=== PATIENT | male | born 1985 | race Native Hawaiian/Other Pacific Islander ===

== ENCOUNTER 2019-12-29 12:36 | Emergency (ER) | payer MEDICAID ==
[~2019-12-29] VITALS: Ht 170.2 cm; Wt 89.1 kg
[2019-12-29 12:39] VITALS: BP 135/94
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
[2019-12-29] MEDS: IBUPROFEN 600 MG TAB PO ONE (12:55)
--- NOTE | 2019-12-29 12:55 | NUR ---
PT TAKEN TO XRAY VIA WHEELCHAIR
[2019-12-29 13:44] VITALS: BP 130/84
--- NOTE | 2019-12-29 13:44 | NUR ---
Patient discharged with v/s stable. Written and verbal after care instructions given and explained. Patient alert, oriented and verbalized understanding of instructions. Ambulatory with steady gait. All questions addressed prior to discharge. ID band removed. Patient advised to follow up with PMD. Rx of ibuprofen given. Patient educated on indication of medication including possible reaction and side effects. Opportunity to ask questions provided and answered. radiology cd given, double RN verified
== END 2019-12-29 13:44 | disposition home or self-care (01) ==
LOC: MED 12:36
DX: S52.091A Other fracture of upper end of right ulna, initial encounter for closed fracture (principal); Z98.890 Other specified postprocedural states; W19.XXXA Unspecified fall, initial encounter; Y93.89 Activity, other specified; Y92.89 Other specified places as the place of occurrence of the external cause; Y99.8 Other external cause status
CPT/HCPCS: 73130; 99283

== ENCOUNTER 2020-09-21 08:37 | Emergency (ER) | payer MEDICAID ==
[~2020-09-21] VITALS: Ht 165.1 cm; Wt 86.2 kg
--- NOTE | 2020-09-21 08:40 | NUR ---
Patient ambulated with steady gait to bed 7.
[2020-09-21 08:44] VITALS: BP 132/86
--- NOTE | 2020-09-21 08:47 | NUR ---
35 YO M BIB SELF FOR C/C OF 9/10 LEFT EAR PAIN SINCE 0600. PT STATES HE HAD TINNITUS WHICH HAS SINCE RESOLVED, DENIES TROUBLE HEARING, OR DISCHARGE FROM EAR. DENIES RUNNY NOSE, COUGH, FEVER, SORE THROAT, OR SOB. BED LOCKED AND IN LOWEST POSITION. SIDE RAILS X1. MED HX: DENIES NO RX NKA
[2020-09-21] MEDS ORDERED: ACETAMINOPHEN EXTRA STRENGTH 500 MG TAB PO ONE (08:55)
[2020-09-21] MEDS ORDERED: OFLO5SOL27 LEFT EAR (09:02)
--- NOTE | 2020-09-21 09:24 | NUR ---
PT LEFT EAR IRRIGATED WITH NORMAL SALINE, ERMD NOTIFIED
[2020-09-21 09:36] VITALS: BP 132/86
--- NOTE | 2020-09-21 09:36 | NUR ---
Patient discharged with v/s stable. Written and verbal after care instructions given and explained. Patient alert, oriented and verbalized understanding of instructions. Ambulatory with steady gait. All questions addressed prior to discharge. ID band removed. Patient advised to follow up with PMD. Rx of OFLOXACIN given. Patient educated on indication of medication including possible reaction and side effects. Opportunity to ask questions provided and answered.
== END 2020-09-21 09:36 | disposition home or self-care (01) ==
LOC: MED 08:37
DX: H60.92 Unspecified otitis externa, left ear (principal); H61.22 Impacted cerumen, left ear; F12.10 Cannabis abuse, uncomplicated
CPT/HCPCS: 99283

== ENCOUNTER 2021-04-19 07:17 | Emergency (ER) | payer MEDICAID ==
[~2021-04-19] VITALS: Ht 165.1 cm; Wt 89.4 kg
[~2021-04-19 07:17] MED LIST: OFLO5SOL27 LEFT EAR
[2021-04-19 07:19] VITALS: BP 140/94
--- NOTE | 2021-04-19 07:26 | NUR ---
PT AMBULATED TO ER BED 4
--- NOTE | 2021-04-19 07:35 | NUR ---
35 Y/O MALE C/O R TESTICULAR PAIN RADIATING TO RLQ XMONTHS. PT REPORTS THAT PAIN HAS BEEN INTERMITTENT FOR MONTHS BUT THIS MORNING, PAIN BECAME UNBEARABLE. PT RATES PAIN 8/10 THAT HE DESCRIBES "SOMEONE SQUEEZING IT". RLQ IS TENDER ON PALPATION. PT DENIES SWELLING TO THE SITE. DENIES DYSURIA/HEMATURIA OR OTHER URINARY SYMPTOMS. DENIES NAUSEA/VOMITNIG/DIARRHEA. PT DENIES INJURY TO AREA. DENIES DISCHARGE/EXPOSURE TO STD. PT A/O X4 WITH EVEN AND UNLABORED RESPIRATIONS. PT IN GOWN. PMH: BRONCHITIS NKDA
--- NOTE | 2021-04-19 07:38 | NUR ---
DR ARREDONDO AT BEDSIDE EVALUATING PT
[2021-04-19 08:10] LABS: BASOPHILS # (AUTO) 0.1 K/uL (0.00-0.22); EOSINOPHILS # (AUTO) 0.2 K/uL (0-0.4); EOSINOPHILS % (AUTO) 2.7 % (0.0-4.0); HEMATOCRIT 43.8 % (36-52); LYMPHOCYTES # (AUTO) 2.1 K/uL (2.0-11.5); LYMPHOCYTES % (AUTO) 28.5 % (20.5-51.1); MEAN CORPUSCULAR HEMOGLOBIN 31 pg (27-31); MEAN CORPUSCULAR HGB CONC 34 g/dL (33-37); MEAN CORPUSCULAR VOLUME 91.4 fL (80-94); MONOCYTES # (AUTO) 0.7 K/uL (0.8-1.0); MONOCYTES % (AUTO) 9.3 % (1.7-9.3); NEUTROPHILS # (AUTO) 4.4 K/uL (1.8-7.7); NEUTROPHILS % (AUTO) 58.5 % (42.2-75.2); PLATELET COUNT (AUTO) 266 K/uL (140-450); RED BLOOD CELL COUNT(AUTO) 4.79 MIL/uL (4.20-6.10); RED CELL DISTRIBUTION WIDTH 13.7 % (11.6-13.7); WHITE BLOOD COUNT (AUTO) 7.4 K/uL (4.8-10.8)
[2021-04-19 08:11] LABS: APPEARANCE,URINE CLEAR (CLEAR); BILIRUBIN,URINE NEGATIVE (NEGATIVE); BLOOD, URINE TRACE-I (NEGATIVE); COLOR,URINE YELLOW (YELLOW); LEUKOCYTE ESTERASE ,URINE NEGATIVE (NEGATIVE); NITRITE, URINE NEGATIVE (NEGATIVE); UGLUCOSE NEGATIVE (NEGATIVE)
--- NOTE | 2021-04-19 08:15 | NUR ---
US AT BEDSIDE
[2021-04-19 08:30] LABS: ALBUMIN 4.4 g/dL (3.4-5.0); ANION GAP 11.3 (8-16); CARBON DIOXIDE 29.2 mmol/L (21-32); CREATININE 0.9 mg/dL (0.6-1.3); POTASSIUM 4.5 mmol/L (3.5-5.1); TOTAL BILIRUBIN 0.5 mg/dL (0.0-1.0)
--- NOTE | 2021-04-19 08:47 | NUR ---
PT TAKEN TO CT VIA LUIS
--- NOTE | 2021-04-19 08:54 | NUR ---
PT BACK FROM CT
--- NOTE | 2021-04-19 09:36 | NUR ---
PT LAYING IN BED WITH EVEN AND UNLABORED RESPIRATIONS. NO SIGNS OF DISTRESS. PT REPORTS PAIN IS TOLERABLE AND DOES NOT NEED PAIN MEDICATION. WILL CONTINUE TO MONITOR
[2021-04-19] MEDS ORDERED: NAPR-1704 PO (10:33)
[2021-04-19 10:45] VITALS: BP 127/74
--- NOTE | 2021-04-19 10:45 | NUR ---
Patient discharged with v/s stable. Written and verbal after care instructions given SCROTAL SWELLING and explained. Patient alert, oriented and verbalized understanding of instructions. Ambulatory with steady gait. All questions addressed prior to discharge. ID band removed. Patient advised to follow up with PMD. Rx of NAPROXEN given. Patient educated on indication of medication including possible reaction and side effects. Opportunity to ask questions provided and answered.
== END 2021-04-19 10:45 | disposition home or self-care (01) ==
LOC: MED 07:17
DX: R10.30 Lower abdominal pain, unspecified (principal); N50.811 Right testicular pain; Z79.899 Other long term (current) drug therapy
CPT/HCPCS: 36415; 74176; 76870; 80053; 81003; 85025; 99285; Q0092

== ENCOUNTER 2022-09-01 13:35 | Emergency (ER) | payer MEDICAID, OTHER ==
[~2022-09-01] VITALS: Ht 167.6 cm; Wt 94.8 kg
[~2022-09-01 13:35] MED LIST changes: +NAPR-1704 PO
[2022-09-01 13:46] VITALS: BP 142/97
[2022-09-01] MEDS ORDERED: NAPR-1704 PO (18:27)
--- NOTE | 2022-09-01 19:17 | NUR ---
Patient discharged with v/s stable. Written and verbal after care instructions given and explained. Patient verbalized understanding. Ambulatory with steady gait. All questions addressed prior to discharge. Advised to follow up with PMD.
== END 2022-09-01 19:17 | disposition home or self-care (01) ==
LOC: MED 13:35
DX: M54.10 Radiculopathy, site unspecified (principal); Z79.1 Long term (current) use of non-steroidal anti-inflammatories (NSAID); Z79.2 Long term (current) use of antibiotics
CPT/HCPCS: 73030; 82948; 99283

== ENCOUNTER 2022-12-04 15:21 | Emergency (ER) | payer OTHER ==
[~2022-12-04] VITALS: Ht 165.1 cm; Wt 92.1 kg
--- NOTE | 2022-12-04 15:35 | NUR ---
Wendy blanco in [facility] - 12/04/22 at 1543 by PHSEP PT AMB TO BED 12
[2022-12-04 15:42] VITALS: BP 147/80; PULSE 71; RESP 18; TEMP 98; O2SAT 98
--- NOTE | 2022-12-04 15:43 | NUR ---
PT W/C ASSISTED TO BED 12
--- NOTE | 2022-12-04 15:49 | NUR ---
MARTA QUILES AT BEDSIDE FOR EVALUATION
[2022-12-04 15:55] VITALS: O2SAT 98
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
[2022-12-04] MEDS ORDERED: KETOROLAC 30 MG/ML VIAL IM ONE (16:00)
[2022-12-04] MEDS ORDERED: HYDROcodone/APAP 5/325 MG 1 TAB TAB PO ONE (16:00)
[2022-12-04] MEDS ORDERED: NAPR-54 PO (16:40)
[2022-12-04] MEDS ORDERED: LID5T TP (16:40)
[2022-12-04] MEDS ORDERED: ACET-8905 PO (16:40)
[2022-12-04 16:49] VITALS: O2SAT 98
--- NOTE | 2022-12-04 16:51 | NUR ---
Patient discharged with v/s stable. Written and verbal after care instructions given and explained. Patient alert, oriented and verbalized understanding of instructions. Ambulatory with steady gait. All questions addressed prior to discharge. ID band removed. Patient advised to follow up with PMD. Rx of LIDODERM, MOTRIN given. Patient educated on indication of medication including possible reaction and side effects. Opportunity to ask questions provided and answered.
--- NOTE | 2022-12-04 16:51 | NUR ---
The patient's care was reviewed and supervised by Mousie 05 ANNY, RN.
== END 2022-12-04 16:49 | disposition home or self-care (01) ==
LOC: MED 15:21
DX: S39.012A Strain of muscle, fascia and tendon of lower back, initial encounter (principal); Z79.899 Other long term (current) drug therapy; X58.XXXA Exposure to other specified factors, initial encounter; Y93.89 Activity, other specified; Y92.89 Other specified places as the place of occurrence of the external cause; Y99.8 Other external cause status
CPT/HCPCS: 81002; 96372; 99283; J1885